=== PATIENT | female | born 1940 | race Caucasian/White ===

== ENCOUNTER 2017-03-11 05:59 | Day surgery (SDC) | payer OTHER ==
[~2017-03-11] VITALS: Ht 160 cm; Wt 53.9 kg
[~2017-03-11 05:59] MED LIST: ATENOLOL50 MG PO; AUGMENTIN875 MG PO; HYDROCODON-ACE1 EAC7 PO; HYDROXYCHLOROQ200 MG PO; LEVOTHYROXINE75 MCG PO; LO-DOSE ASPIRIN81 M1 PO; METOPROLOL TART25 MG PO; NORCO 5/3251 TABLET PO; PREDNISONE2.5 MG PO; SERTRALINE HCL100 MG PO; SYNTHROID88 MCG PO; VITAMIN D32000 UNI1 PO; ZOFRAN ODT4 MG PO
[2017-03-11 06:32] VITALS: BP 200/88
[2017-03-11] MEDS ORDERED: HYDROCODON-ACE1 EAC7 PO (11:02)
[2017-03-11 11:30] VITALS: BP 170/69
[2017-03-11 12:20] VITALS: BP 164/64
== END 2017-03-11 12:30 | disposition home or self-care (01) ==
LOC: SDC 05:59
PROC: 0HBU0ZX Excision of Left Breast, Open Approach, Diagnostic (ICD-10-PCS; principal; 2017-03-11)
DX: D24.2 Benign neoplasm of left breast (principal); I10 Essential (primary) hypertension; K21.0 Gastro-esophageal reflux disease with esophagitis; E03.9 Hypothyroidism, unspecified; E83.52 Hypercalcemia; M31.6 Other giant cell arteritis; F32.9 Major depressive disorder, single episode, unspecified; Z79.82 Long term (current) use of aspirin; Z83.3 Family history of diabetes mellitus
CPT/HCPCS: 88307; J0131; J0690; J1100; J2405; J3010; S0020

== ENCOUNTER 2017-11-26 16:25 | Emergency (ER) | payer OTHER ==
[~2017-11-26] VITALS: Ht 162.6 cm; Wt 56.2 kg
[2017-11-26] MEDS ORDERED: PERCOCET 5/31 TABLET PO (19:02)
[2017-11-26 19:29] VITALS: BP 145/72
== END 2017-11-26 19:30 | disposition home or self-care (01) ==
LOC: EME 16:25
DX: S02.40CA Maxillary fracture, right side, initial encounter for closed fracture (principal); M54.2 Cervicalgia; W19.XXXA Unspecified fall, initial encounter; K21.9 Gastro-esophageal reflux disease without esophagitis; Z79.82 Long term (current) use of aspirin; F32.9 Major depressive disorder, single episode, unspecified; E03.9 Hypothyroidism, unspecified
CPT/HCPCS: 70450; 70486; 72125; 99281; 99285

== ENCOUNTER 2018-01-04 22:56 | Emergency (ER) | payer OTHER ==
[~2018-01-04] VITALS: Ht 165.1 cm; Wt 56.0 kg
[~2018-01-04 22:56] MED LIST changes: +PERCOCET 5/31 TABLET PO
[2018-01-04 23:33] LABS: BASOPHIL COUNT 0.1 K/uL (0-0.1); EOSINOPHIL (%) 3.3 % (0-5); EOSINOPHIL COUNT 0.2 K/uL (0-0.3); HEMATOCRIT 34.5 % (36.0-46.0); HEMOGLOBIN 11.4 G/DL (11.9-15.5); IMMATURE GRANULOCYTE (%) 0.3 % (0.0-0.7); LYMPHOCYTE (%) 31.5 % (15-42); LYMPHOCYTE COUNT 2.2 K/uL (1.0-2.8); MCH 28.6 PG (29.0-34.0); MCV 86.7 FL (83-99); MONOCYTE (%) 9.5 % (3-12); MONOCYTE COUNT 0.7 K/uL (0-0.8); NEUTROPHIL (%) 54.4 % (45-76); NEUTROPHIL COUNT 3.8 K/uL (1.8-6.4); PLATELET COUNT 241 K/uL (156-360); RBC DIS.WIDTH-CV 14.3 % (11.8-14.6); RBC DIS.WIDTH-SD 45.8 % (39-53); RED BLOOD COUNT 3.98 M/uL (3.80-5.20)
[2018-01-04 23:48] LABS: CHLORIDE 107 mEq/L (99-109); POTASSIUM 4.1 mEq/L (3.7-5.4); SODIUM 143 mEq/L (136-147)
[2018-01-04 23:50] LABS: PTT 28.9 SEC (25-37)
[2018-01-04 23:51] LABS: GLUCOSE 107 mg/dL (70-99); TOTAL PROTEIN 7.3 g/dL (6.4-8.3)
[2018-01-04 23:53] LABS: TOTAL BILIRUBIN 0.3 mg/dL (0.0-1.0)
[2018-01-04 23:54] LABS: ALKALINE PHOSPHATASE 109 IU/L (3-129); GFR ESTIMATE (CALCULATED) 57 mL/min/
[2018-01-04 23:55] LABS: UREA NITROGEN (BUN) 20 mg/dL (9-23)
[2018-01-04 23:56] LABS: AST (GOT) 18 IU/L (2-34)
[2018-01-04 23:57] LABS: ALT (GPT) 10 IU/L (3-49)
[2018-01-05 01:00] VITALS: BP 153/73
== END 2018-01-05 01:20 | disposition home or self-care (01) ==
LOC: EME 22:56
PROVIDERS: Emergency Medicine
DX: I62.03 Nontraumatic chronic subdural hemorrhage (principal); Z79.82 Long term (current) use of aspirin; F32.9 Major depressive disorder, single episode, unspecified; K21.9 Gastro-esophageal reflux disease without esophagitis; E03.9 Hypothyroidism, unspecified
CPT/HCPCS: 70450; 80053; 85025; 85610; 85730; 99281; 99284